=== PATIENT | male | born 1985 | race Caucasian/White ===

== ENCOUNTER 2017-05-15 09:35 | Emergency (ER) | payer OTHER ==
[~2017-05-15] VITALS: Ht 172.7 cm; Wt 83.5 kg
[~2017-05-15 09:35] MED LIST: NOHOMEMEDS
[2017-05-15 09:53] VITALS: BP 143/84
[2017-05-15] MEDS ORDERED: PEN-VEE K,VEET500 MG PO (11:21)
[2017-05-15] MEDS ORDERED: NAPROXEN500 MG PO (11:52)
== END 2017-05-15 12:03 | disposition home or self-care (01) ==
LOC: EME 09:35
DX: G89.29 Other chronic pain (principal); K08.89 Other specified disorders of teeth and supporting structures; K04.7 Periapical abscess without sinus; K03.81 Cracked tooth; F17.200 Nicotine dependence, unspecified, uncomplicated; Z71.6 Tobacco abuse counseling
CPT/HCPCS: 99281; 99283